=== PATIENT | female | born 1995 | race Hispanic/Latino ===

== ENCOUNTER 2021-04-03 12:25 | Emergency (ER) | payer SELFPAY ==
[~2021-04-03] VITALS: Ht 165.1 cm; Wt 108.4 kg
[2021-04-03] MEDS ORDERED: KETOROLAC TROMETHAMINE 30 MG/ML VIAL IM NR (13:14)
[2021-04-03] MEDS ORDERED: IBUPROFEN600 MG PO (13:21)
[2021-04-03] MEDS ORDERED: KETOROLAC TROMETHAMINE 30 MG/ML VIAL ONE (13:29)
== END 2021-04-03 15:10 | disposition home or self-care (01) ==
LOC: ER 13:05
DX: G50.0 Trigeminal neuralgia (principal)
CPT/HCPCS: 99283; J1885